=== PATIENT | female | born 1985 | race Caucasian/White ===

== ENCOUNTER 2021-06-05 02:15 | Emergency (ER) | payer OTHER ==
[~2021-06-05] VITALS: Ht 177.8 cm; Wt 81.7 kg
[~2021-06-05 02:15] MED LIST: ALBU90OI INH; AMOX1XR PO; AMOX500 PO; CEPH500 PO; CLIN150 PO; CRUTCH3 USE; Cleocin HCl150 MG PO; DOXY100 PO; FAMO40 PO; HYDACE5 PO; IBUP200 PO; IBUP800 PO; LEVFLO500 PO; METPRE4DP PO; NAPR500 PO; NEOPOLHCSU RIGHTEAR; Norco 5-325 Ta1 EACH PO; OXYACE5T PO; PRENZ; PROM25 PO; SULTRIDS PO; Verotin-Gr Cap1 EACH PO
== END 2021-06-05 02:50 | disposition home or self-care (01) ==
LOC: ER 02:15
DX: U07.1 COVID-19 (principal); F17.200 Nicotine dependence, unspecified, uncomplicated; Z79.899 Other long term (current) drug therapy
CPT/HCPCS: 99282; A9270